=== PATIENT | male | born 1975 | race African-American/Black ===

== ENCOUNTER 2021-08-05 10:24 | Emergency (ER) | payer BC ==
[2021-08-05 10:57] VITALS: BP 138/81; PULSE 79; TEMP 98.4; BMI 25.1
[2021-08-05] MEDS ORDERED: KETOROLAC TROMETHAMINE 30 MG/1 ML VIAL IM ONE (11:40)
[2021-08-05] MEDS ORDERED: KETOROLAC TROMETHAMINE 30 MG/1 ML VIAL ONE (11:43)
[2021-08-05] MEDS ORDERED: LIDOCAINE 5% TOPICAL PATCH TP ONE (12:23)
[2021-08-05] MEDS ORDERED: LIDOCAINE PATCH REMOVAL MC SCH (22:00)
== END 2021-08-05 12:48 | disposition home or self-care (01) ==
LOC: JERFT 10:24
PROC: 3E0233Z Introduction of Anti-inflammatory into Muscle, Percutaneous Approach (ICD-10-PCS; principal; 2021-08-05)
DX: S40.012A Contusion of left shoulder, initial encounter (principal); W18.2XXA Fall in (into) shower or empty bathtub, initial encounter
CPT/HCPCS: 71046-TC-FY; 73030-TC-LT-FY; 99284-25